=== PATIENT | female | born 1965 | race Caucasian/White ===

== ENCOUNTER 2018-08-08 11:38 | Inpatient (IN) | payer OTHER ==
[~2018-08-08] VITALS: Ht 177.8 cm; Wt 61.2 kg
[2018-08-08 11:42] VITALS: BP_SYST 116
[2018-08-08] MEDS ORDERED: KETOROLAC TROMETHAMINE 30 MG VIAL IVP ONE (13:30)
[2018-08-08] MEDS ORDERED: MORPHINE 4 MG/ML INJ. SYRINGE IVP PRN (15:30)
[2018-08-08 15:53] LABS: MEAN CORPUSCULAR HEMOGLOBIN 23 pg (27-31); MEAN CORPUSCULAR HGB CONC 30 % (32-36); MEAN CORPUSCULAR VOLUME 76 fL (79.0-98.0); PLATELET COUNT (AUTO) 261 K/uL (130-430); RED BLOOD CELL COUNT(AUTO) 3.94 MIL/uL (4.2-6.2); RED CELL DISTRIBUTION WIDTH 18.5 % (9.0-15.0); WHITE BLOOD COUNT (AUTO) 6.6 K/uL (4.8-10.8)
[2018-08-08 15:55] LABS: CALCIUM 8.4 mg/dL (8.4-11.0); CREATININE 0.51 mg/dL (0.55-1.30); POTASSIUM 3.5 mmol/L (3.5-5.1)
[2018-08-08 15:57] LABS: PROTHROMBIN TIME 10.5 SECS (9.5-12.5)
[2018-08-08 16:00] VITALS: BP_SYST 128
[2018-08-08 16:08] VITALS: BP_SYST 128
[2018-08-08] MEDS ORDERED: ACET-2165 PO (16:26)
[2018-08-08] MEDS ORDERED: FAMOTIDINE 20 MG TABLET PO ONE (16:30)
[2018-08-08] MEDS ORDERED: HYDROmorphone 1 MG INJ. 1 MG/ML AMPUL IVP PRN (16:30)
[2018-08-08] MEDS ORDERED: ACETAMINOPHEN 325 MG TABLET PO PRN (16:30)
[2018-08-08] MEDS ORDERED: BUPIVACAINE /EPINEPHRINE/PF 0.5% 30 ML VIAL INJ ONE (16:35)
[2018-08-08] MEDS ORDERED: LR 1,000 ML IV.SOLN IV ONE (16:35)
[2018-08-08] MEDS ORDERED: MIDAZOLAM HCL 5 MG/5 ML VIAL IVP ONE (16:35)
[2018-08-08] MEDS ORDERED: PROPOFOL 200MG/ 20ML VIAL (DIPRIVAN) IV ONE (16:35)
[2018-08-08] MEDS: ONDANSETRON HCL 4 MG/2 ML VIAL IVP PRN (16:48)
[2018-08-08] MEDS: HYDROmorphone 1 MG INJ. 1 MG/ML AMPUL IVP PRN ×2 (16:48→21:07)
[2018-08-08 17:07] LABS: BAND % (MANUAL) 23 % (0-6); BASOPHILS % (MANUAL) 0 % (0-2); EOSINOPHILS % (MANUAL) 0 % (0-7); LYMPHOCYTES % (MANUAL) 10 % (20-46); MONOCYTES % (MANUAL) 5 % (0-11)
[2018-08-08] MEDS ORDERED: BUPIVACAINE LIPOSOME/PF 266 MG/20 ML VIAL INFIL ONE (18:14)
[2018-08-08 18:36] LABS: BILIRUBIN,URINE NEGATIVE (NEGATIVE); BLOOD, URINE NEGATIVE (NEGATIVE); CLARITY/URINE CLEAR (CLEAR); COLOR,URINE YELLOW (YELLOW); GLUCOSE,URINE NEGATIVE (NEGATIVE); KETONES,URINE NEGATIVE (NEGATIVE); LEUKOCYTE ESTERASE ,URINE NEGATIVE (NEGATIVE); NITRITE, URINE NEGATIVE (NEGATIVE); PROTEIN URINE NEGATIVE (NEGATIVE); UROBILINOGEN,URINE 0.2 (0.2-1.0)
[2018-08-08 19:30] VITALS: BP_SYST 122
[2018-08-09 00:31] VITALS: BP_SYST 122
[2018-08-09] MEDS: HYDROmorphone 1 MG INJ. 1 MG/ML AMPUL IVP PRN ×2 (04:31→10:03)
[2018-08-09] MEDS: ONDANSETRON HCL 4 MG/2 ML VIAL IVP PRN ×2 (04:37→12:18)
[2018-08-09 06:36] LABS: ALBUMIN 2.7 g/dL (3.4-4.8); BASOPHILS % (AUTO) 0.3 % (0.0-2.0); CALCIUM 7.6 mg/dL (8.4-11.0); CREATININE 0.44 mg/dL (0.55-1.30); EOSINOPHILS # (AUTO) 0.2 K/uL (0.0-0.4); HEMATOCRIT 26.5 % (36-48); HEMOGLOBIN 8.1 g/dL (12.0-16.0); LYMPHOCYTES # (AUTO) 0.4 K/uL (1.0-5.5); LYMPHOCYTES % (AUTO) 10.6 % (20.5-51.5); MEAN CORPUSCULAR HEMOGLOBIN 23 pg (27-31); MEAN CORPUSCULAR HGB CONC 31 % (32-36); MEAN CORPUSCULAR VOLUME 76 fL (79.0-98.0); MONOCYTES # (AUTO) 0.3 K/uL (0.0-1.0); MONOCYTES % (AUTO) 6.5 % (1.7-9.3); NEUTROPHILS # (AUTO) 3.3 K/uL (1.8-7.7); NEUTROPHILS % (AUTO) 77.6 % (40.0-70.0); PLATELET COUNT (AUTO) 214 K/uL (130-430); POTASSIUM 4.1 mmol/L (3.5-5.1); RED CELL DISTRIBUTION WIDTH 18.7 % (9.0-15.0); WHITE BLOOD COUNT (AUTO) 4.2 K/uL (4.8-10.8)
[2018-08-09 07:16] LABS: THYROID STIMULATING HORMONE 0.46 uIu/mL (0.34-4.82); TOTAL BILIRUBIN 0.3 mg/dL (0.0-1.0)
[2018-08-09 08:08] VITALS: BP_SYST 98
[2018-08-09] MEDS: FAMOTIDINE 20 MG TABLET PO SCH (09:00)
[2018-08-09 09:10] LABS: TOTAL IRON BIND. CAPACITY 394 ug/dL (250-450)
[2018-08-09 10:41] LABS: RETICULOCYTE COUNT 1.4 % (0.5-1.5)
[2018-08-09 12:27] VITALS: BP_SYST 100
[2018-08-09] MEDS ORDERED: KETOROLAC TROMETHAMINE 30 MG VIAL IVP PRN (13:00)
[2018-08-09] MEDS ORDERED: fentaNYL CITRATE/PF 100 MCG/2 ML AMP IVP PRN ×2 (13:00)
[2018-08-09] MEDS ORDERED: ONDANSETRON HCL 4 MG/2 ML VIAL IVP PRN ×2 (13:00→18:15)
[2018-08-09] MEDS: POTASSIUM CHLORIDE 10 MEQ in NACL 0.9% 1,000 ML IV SCH ×2 (14:00→20:24)
[2018-08-09 16:04] VITALS: BP_SYST 100
[2018-08-09] MEDS ORDERED: POLYMYXIN 500,000/BACIT.10,000 UNITS in NS IRR 1 L IR ONE (16:18)
[2018-08-09 16:27] VITALS: BP_SYST 112
[2018-08-09] MEDS ORDERED: MORPHINE SULFATE 10MG/10ML PF AMP EP ONE (16:35)
[2018-08-09] MEDS ORDERED: NALOXONE HCL 0.4 MG/ML AMP (NARCAN) IVP PRN ×2 (18:15)
[2018-08-09] MEDS ORDERED: DIPHENHYDRAMINE INJ 50 MG/ML VIAL IVP PRN (18:15)
[2018-08-09] MEDS ORDERED: NALBUPHINE HCL 10 MG/ML AMP IVP PRN (18:15)
[2018-08-09] MEDS ORDERED: MORPHINE SULFATE 10MG/10ML PF AMP SP SCH (18:15)
[2018-08-09] MEDS ORDERED: KETOROLAC TROMETHAMINE 60 MG/2 ML VIAL IM PRN (18:15)
[2018-08-09 20:05] VITALS: BP_SYST 93
[2018-08-09] MEDS ORDERED: CEFAZOLIN 1 GM IVPB PREMIX 100 ML IV ONE (22:03)
[2018-08-09] MEDS: CEFAZOLIN 1 GM IVPB PREMIX 50 ML IV SCH (22:09)
[2018-08-09] MEDS: DOCUSATE SODIUM 100 MG CAPSULE PO SCH (22:14)
[2018-08-10 00:05] VITALS: BP_SYST 92
[2018-08-10] MEDS: POTASSIUM CHLORIDE 10 MEQ in NACL 0.9% 1,000 ML IV SCH ×2 (05:20→20:06)
[2018-08-10] MEDS: CEFAZOLIN 1 GM IVPB PREMIX 50 ML IV SCH (05:31)
[2018-08-10 06:10] LABS: FOLATE (FOLIC ACID) 6.7 ng/mL (>3.0)
[2018-08-10 07:07] LABS: BASOPHILS % (AUTO) 1.1 % (0.0-2.0); EOSINOPHILS # (AUTO) 0.1 K/uL (0.0-0.4); EOSINOPHILS % (AUTO) 1.7 % (0.0-4.0); HEMATOCRIT 26.2 % (36-48); HEMOGLOBIN 8.1 g/dL (12.0-16.0); LYMPHOCYTES # (AUTO) 0.3 K/uL (1.0-5.5); MEAN CORPUSCULAR HEMOGLOBIN 24 pg (27-31); MEAN CORPUSCULAR HGB CONC 31 % (32-36); MEAN CORPUSCULAR VOLUME 78 fL (79.0-98.0); MONOCYTES # (AUTO) 0.3 K/uL (0.0-1.0); MONOCYTES % (AUTO) 7.5 % (1.7-9.3); NEUTROPHILS # (AUTO) 2.7 K/uL (1.8-7.7); PLATELET COUNT (AUTO) 163 K/uL (130-430); RED BLOOD CELL COUNT(AUTO) 3.37 MIL/uL (4.2-6.2); RED CELL DISTRIBUTION WIDTH 19.2 % (9.0-15.0); WHITE BLOOD COUNT (AUTO) 3.4 K/uL (4.8-10.8)
[2018-08-10 07:09] LABS: CALCIUM 7.6 mg/dL (8.4-11.0); CREATININE 0.5 mg/dL (0.55-1.30); POTASSIUM 4.3 mmol/L (3.5-5.1)
[2018-08-10 07:39] LABS: NEUTROPHILS % (AUTO) 79.7 % (40.0-70.0)
[2018-08-10 08:05] VITALS: BP_SYST 97
[2018-08-10] MEDS: DOCUSATE SODIUM 100 MG CAPSULE PO SCH ×2 (09:00→20:04)
[2018-08-10] MEDS: FAMOTIDINE 20 MG TABLET PO SCH (09:48)
[2018-08-10] MEDS: ENOXAPARIN SODIUM 40 MG/0.4 ML SYRINGE SUBCUT SCH (09:50)
[2018-08-10] MEDS: ONDANSETRON HCL 4 MG/2 ML VIAL IVP PRN ×3 (10:06→20:02)
[2018-08-10 11:32] VITALS: BP_SYST 103
[2018-08-10] MEDS ORDERED: CYANOCOBALAMIN 1000 mCg TABLET PO ONE (14:15)
[2018-08-10] MEDS ORDERED: MULTIVITAMINS TAB 1 TABLET PO ONE (14:15)
[2018-08-10] MEDS: HYDROmorphone 1 MG INJ. 1 MG/ML AMPUL IVP PRN ×2 (14:26→20:02)
[2018-08-10 16:14] VITALS: BP_SYST 90
[2018-08-10] MEDS: SOD FERRIC GLUC COMPLEX/SUC 125 MG in NS 100 ML IV SCH (17:56)
[2018-08-10 19:47] VITALS: BP_SYST 101
[2018-08-10] MEDS: MULTIVITAMINS TAB 1 TABLET PO SCH (20:04)
[2018-08-11 00:01] VITALS: BP_SYST 100; BP_SYST 81
[2018-08-11] MEDS: POTASSIUM CHLORIDE 10 MEQ in NACL 0.9% 1,000 ML IV SCH ×2 (05:42→18:03)
[2018-08-11 07:34] LABS: BASOPHILS % (AUTO) 0.1 % (0.0-2.0); EOSINOPHILS # (AUTO) 0.2 K/uL (0.0-0.4); EOSINOPHILS % (AUTO) 4.7 % (0.0-4.0); HEMATOCRIT 27.3 % (36-48); HEMOGLOBIN 8.5 g/dL (12.0-16.0); LYMPHOCYTES # (AUTO) 0.6 K/uL (1.0-5.5); LYMPHOCYTES % (AUTO) 14.3 % (20.5-51.5); MEAN CORPUSCULAR HEMOGLOBIN 24 pg (27-31); MEAN CORPUSCULAR HGB CONC 31 % (32-36); MEAN CORPUSCULAR VOLUME 77 fL (79.0-98.0); MONOCYTES # (AUTO) 0.4 K/uL (0.0-1.0); MONOCYTES % (AUTO) 8.5 % (1.7-9.3); NEUTROPHILS % (AUTO) 72.4 % (40.0-70.0); PLATELET COUNT (AUTO) 163 K/uL (130-430); RED BLOOD CELL COUNT(AUTO) 3.53 MIL/uL (4.2-6.2); WHITE BLOOD COUNT (AUTO) 4.2 K/uL (4.8-10.8)
[2018-08-11 07:39] LABS: CALCIUM 7.8 mg/dL (8.4-11.0); CREATININE 0.41 mg/dL (0.55-1.30); POTASSIUM 4.3 mmol/L (3.5-5.1)
[2018-08-11 08:00] VITALS: BP_SYST 105
[2018-08-11] MEDS: CYANOCOBALAMIN 1000 mCg TABLET PO SCH (08:11)
[2018-08-11] MEDS: ONDANSETRON HCL 4 MG/2 ML VIAL IVP PRN ×4 (08:12→21:26)
[2018-08-11] MEDS: FAMOTIDINE 20 MG TABLET PO SCH (08:12)
[2018-08-11] MEDS: MULTIVITAMINS TAB 1 TABLET PO SCH ×2 (08:12→21:17)
[2018-08-11] MEDS: DOCUSATE SODIUM 100 MG CAPSULE PO SCH ×2 (08:13→21:17)
[2018-08-11] MEDS: HYDROmorphone 1 MG INJ. 1 MG/ML AMPUL IVP PRN ×4 (08:13→21:28)
[2018-08-11] MEDS: ENOXAPARIN SODIUM 40 MG/0.4 ML SYRINGE SUBCUT SCH (08:16)
[2018-08-11 12:49] VITALS: BP_SYST 100
[2018-08-11 16:46] VITALS: BP_SYST 95
[2018-08-11] MEDS: SOD FERRIC GLUC COMPLEX/SUC 125 MG in NS 100 ML IV SCH (17:50)
[2018-08-12 00:14] VITALS: BP_SYST 93
[2018-08-12] MEDS: DOCUSATE SODIUM 100 MG CAPSULE PO SCH (08:22)
[2018-08-12] MEDS: ENOXAPARIN SODIUM 40 MG/0.4 ML SYRINGE SUBCUT SCH (08:22)
[2018-08-12] MEDS: FAMOTIDINE 20 MG TABLET PO SCH (08:22)
[2018-08-12] MEDS: MULTIVITAMINS TAB 1 TABLET PO SCH (08:22)
[2018-08-12] MEDS: CYANOCOBALAMIN 1000 mCg TABLET PO SCH (08:22)
[2018-08-12] MEDS: POTASSIUM CHLORIDE 10 MEQ in NACL 0.9% 1,000 ML IV SCH ×2 (08:24→20:16)
[2018-08-12] MEDS: HYDROmorphone 1 MG INJ. 1 MG/ML AMPUL IVP PRN ×3 (08:25→17:34)
[2018-08-12] MEDS: ONDANSETRON HCL 4 MG/2 ML VIAL IVP PRN ×3 (08:29→17:33)
[2018-08-12 08:45] VITALS: BP_SYST 99
[2018-08-12 11:33] VITALS: BP_SYST 114
[2018-08-12 13:10] VITALS: BP_SYST 114
[2018-08-12 15:59] VITALS: BP_SYST 92
[2018-08-12] MEDS: SOD FERRIC GLUC COMPLEX/SUC 125 MG in NS 100 ML IV SCH (17:34)
[2018-08-12] MEDS ORDERED: HYDR-4272 PO (20:42)
[2018-08-12] MEDS ORDERED: APIX5TAB4 PO (20:43)
[2018-08-12 21:00] VITALS: BP_SYST 106
== END 2018-08-12 21:38 | disposition home or self-care (01) | DRG 470 ==
LOC: SED 11:38 → STU 15:28 → SMU 08-10 19:34
PROVIDERS: ADMIT Internal Medicine; ATTEND Internal Medicine
PROC: 0SRR0JA Replacement of Right Hip Joint, Femoral Surface with Synthetic Substitute, Uncemented, Open Approach (ICD-10-PCS; principal; 2018-08-09 15:00)
DX: S72.011A Unspecified intracapsular fracture of right femur, initial encounter for closed fracture (principal); E44.0 Moderate protein-calorie malnutrition; D50.9 Iron deficiency anemia, unspecified; D72.819 Decreased white blood cell count, unspecified; D72.825 Bandemia; Z96.653 Presence of artificial knee joint, bilateral; N13.9 Obstructive and reflux uropathy, unspecified; M06.9 Rheumatoid arthritis, unspecified; F17.200 Nicotine dependence, unspecified, uncomplicated; W10.9XXA Fall (on) (from) unspecified stairs and steps, initial encounter; E53.8 Deficiency of other specified B group vitamins; Y93.89 Activity, other specified; Y92.89 Other specified places as the place of occurrence of the external cause; Y99.8 Other external cause status; Z80.1 Family history of malignant neoplasm of trachea, bronchus and lung; Z86.718 Personal history of other venous thrombosis and embolism; Z87.442 Personal history of urinary calculi; Z98.84 Bariatric surgery status; Z98.891 History of uterine scar from previous surgery; Z88.5 Allergy status to narcotic agent
CPT/HCPCS: 36415; 71045; 72170-TC; 73502; 80048; 80053; 81003; 82607; 82728; 82746; 83540-TC; 83550-TC; 83735-TC; 84443-TC; 84702-TC; 85007; 85025; 85027; 85044-TC; 85610-TC; 85651-TC; 86140; 86886; 86900; 86901; 86920; 87040-TC; 87081; 88305; 88311; 93005; 94010; 96374; 97110-GP; 97112-GP; 97116-GP; 97163; 97530-GP; 99285; C1776; C9290; G0378; J0690; J1170; J1650; J1885; J2250; J2274; J2405; J2704; J2916; J3480; J3490; J7030; J7050; J7120; P9021